=== PATIENT | male | born 1950 | race Caucasian/White ===

== ENCOUNTER → 2024-01-28 08:21 | Outpatient (REF) | payer OTHER, SELFPAY | LOC: RCS 08:21 | PROVIDERS: ATTENDING PHYSICIAN Internal Medicine Cardiovascular Disease; FAMILY PHYSICIAN Family Medicine | DX: I48.0 Paroxysmal atrial fibrillation (principal) | CPT/HCPCS: 93005 ==

== ENCOUNTER → 2024-06-29 13:36 | Outpatient (REF) | payer OTHER, SELFPAY | LOC: RCS 13:36 | PROVIDERS: ATTENDING PHYSICIAN Nurse Practitioner; FAMILY PHYSICIAN Family Medicine | DX: I48.0 Paroxysmal atrial fibrillation (principal); I50.20 Unspecified systolic (congestive) heart failure | CPT/HCPCS: 93306 ==

== ENCOUNTER 2025-06-18 19:01 | Emergency (ER) | payer OTHER, SELFPAY ==
[2025-06-18 19:07] VITALS: BP 167/91
[2025-06-18 19:25] LABS: Hematocrit 46.8 % (39.0-52.0); Hemoglobin 16.1 g/dL (13.0-18.0); Mean Corp Hgb Conc. 34.4 g/dL (33.0-37.0); Mean Corpuscular Volume 94.9 fL (80.0-94.0); Nucleated Red Blood Cells % 0 % (-); Platelet Count 171 10^3/uL (130-400); Red Cell Dist. Width 12.2 % (11.5-14.5)
[2025-06-18 19:51] LABS: ALT (SGPT) 18 U/L (0-50); AST (SGOT) 24 U/L (17-59); Albumin 4.6 g/dl (3.5-5.0); Alkaline Phosphatase 64 U/L (38-126); Blood Urea Nitrogen 21 mg/dl (9-20); Calcium 9.4 mg/dl (8.4-10.2); Carbon Dioxide 28 mmol/L (22-30); Chloride 101 mmol/L (98-107); Glucose 102 mg/dl (70-99); Potassium 4.5 mmol/L (3.5-5.1); Sodium 134 mmol/L (135-145); Total Protein 7.7 g/dl (6.3-8.2); eGFR > 60.00
[2025-06-18 19:55] LABS: Troponin I 0.013 ng/ml
[2025-06-18 22:40] VITALS: BP 140/77
[2025-06-18 22:42] VITALS: BMI 33.5
--- NOTE | 2025-06-19 00:14 | ED.GENMED ---
History of Present Illness
General
Chief Complaint: Chest Pain
Source: patient and family
Exam Limitations: none
Time Seen by Provider: 06/18/25 22:06
Nursing documentation reviewed up to this point in time: agreed with
History of Present Illness
History of Present Illness:
Note:
CHIEF COMPLAINT(S)
Pain on the right side, exacerbated during work.
HISTORY OF PRESENT ILLNESS
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 The patient describes the pain as similar to previous
gallstone attacks, though he has had a cholecystectomy. He reports that twisting or turning exacerbates the pain. The pain does not radiate to the chest, and he denies any shortness of breath, fever, eating difficulties, or diarrhea. He last had a
bowel movement this morning without any blood noted. The patient consumes alcohol�approximately three shots and three beers�three days a week. He also reports taking several medications for heart issues and diabetes, including metformin and heart
medications.
PAST MEDICAL AND SURIGICAL HISTORY
History of heart failure and previous gallbladder removal.
CHRONIC MEDICAL CONDITIONS SIGNIFICANTLY AFFECTING CARE
Cardiovascular disease, Diabetes (managed with metformin).
SOCIAL HISTORY
The patient denies smoking. He consumes alcohol approximately three days a week, which includes three shots and three beers each time.
MEDICATIONS
Metformin, heart medications (including Entresto and Eliquis), and other unspecified heart and diabetes medications.
REVIEW OF SYSTEMS
- Respiratory: Denies shortness of breath.
- Gastrointestinal: Reports right-sided pain similar to previous gallbladder attacks; denies issues with recent meals or stool discoloration.
- Cardiovascular: Denies chest pain.
- Urinary: Reports normal urination but awaits urinalysis.
PHYSICAL EXAM
General: Alert, no acute distress.
Skin: Warm, dry.
Head: Normocephalic, atraumatic.
Neck: Supple, trachea midline.
Eye Ears, nose, mouth, and throat: Oral mucosa moist.
Cardiovascular: Normal peripheral perfusion, no edema.
Respiratory: Respirations are non-labored.
Gastrointestinal : Abdomen, right side tenderness reported.
Back: Normal range of motion, normal alignment.
Musculoskeletal: Normal range of motion, normal strength.
Neurological: Alert and oriented to person, place, time, and situation, no focal neurological deficit observed.
Psychiatric: Cooperative, appropriate mood & affect.
PLAN
A urine sample will be analyzed to rule out urinary issues. Further evaluation for abdominal pain may be conducted based on urinalysis results and symptom persistence.
DIFFERENTIAL DIAGNOSIS
The differential diagnosis includes, in no particular order and is not limited to:
1. Cholecystitis
2. Peptic ulcer disease
3. Pancreatitis
4. Renal colic
5. Appendicitis
6. Hepatitis
7. Biliary tract obstruction
8. Gastritis
9. Abdominal aortic aneurysm
10. Musculoskeletal pain
EKG
My independent EKG interpretation is:
- Time of EKG: Not specified
- Rhythm: Normal sinus rhythm
- Heart rate: 71 beats per minute
- [place]: Left axis deviation
- Notable intervals: Not specified
- Abnormalities observed: No evidence of acute ischemia; Improvement noted as premature ventricular contractions (PVCs) are no longer present compared to earlier EKG today
Disposition:
SUMMARY OF ENCOUNTER
The patient, a 74-year-old male, was seen in the emergency department for right lower chest and abdominal pain, which he described as similar to previous gallbladder pain but has since resolved. The pain is reproducible in the right upper quadrant,
and the patient suspects a muscle pull due to recent weight lifting activities. An ultrasound revealed a mass in his left kidney, known to the patient for [address] imaging further characterized this as a heterogeneous, centrally necrotic
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
DISPOSITION
Discharge.
ASSESSMENT
The abdominal pain is likely musculoskeletal in origin due to the recent heavy lifting. The existing kidney mass, known to the patient, appears unchanged but should be followed up appropriately given its neoplastic nature.
PLAN
The patient will be discharged with reassurance about the right upper quadrant pain, suspected to be musculoskeletal. Discussions on following up on the known kidney mass with nephrology or urology will be advised.
INDEPENDENT REVIEW OF LABS AND INTERPRETATION OF TESTS
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
PATIENT EDUCATION AND COUNSELING
The patient was counseled on the nature of his right-sided abdominal pain and its likely musculoskeletal origin. He was also advised on the importance of following up with a specialist regarding the kidney mass to ensure appropriate ongoing
management.
FOLLOW-UP INSTRUCTIONS
The patient should follow up with a guide tour or urologist concerning the left kidney mass as previously advised.
MEDICAL DECISION MAKING
- Complexity of Data Reviewed: Chronic conditions affecting care include cardiovascular disease and diabetes. Differential diagnosis considered includes renal colic, musculoskeletal pain, among others from the provided list.
- Data:
- Category 1: My independent interpretation of the CT abdomen and pelvis was reviewed, confirming the presence of a neoplastic mass in the left kidney.
- Risk: Consideration of Admission/Observation: Escalation of care including admission/observation was considered but ultimately I feel the patient is safe for outpatient management with close follow-up. Reasoning: Work-up reassuring, does not
reveal any acute life/organ-threatening processes, patients symptoms well-controlled upon reevaluation, reexamination is reassuring, vitals are stable, patient agreeable with discharge, reliable for follow-up.
DIAGNOSIS
1. Abdominal pain, likely musculoskeletal (ICD-10: M79.1).
2. 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
Past History
Past History
ED Past Medical History: CHF, HTN, Hypercholesterolemia and NIDDM
ED Past Surgical History: Cardiac (cath 2021) and Cholecystectomy
Social History
Tobacco: Non-smoker
Alcohol: Occasional
Drug: None
Personal:
Living: with family
Employment: Employed
Phy Exam
Physical Exam
Physical Exam:
.
Scores
Heart Score for Chest Pain Patients
STEMI patient?: No
History: Slightly or Non-Suspicious
ECG: Normal
Age: >/= 65 years
Risk Factors: 1 or 2 Risk Factors
Troponin: </= Normal Limit
Heart Score for Chest Pain Patients: 3
Heart Score Risk: 2.5% MACE over next 6 weeks
Course
Orders/Labs/Results
Orders:
Orders
06/18/25 19:01
Electrocardiogram (*1) Urgent
Reason for Study: Chest Pain
EKG- Treatment ONCE
06/18/25 19:09
IV Insert/Care/Rem.- Treatment PRN
06/18/25 19:14
Complete Blood Count/With Diff Urgent
Comprehensive Metabolic Panel Urgent
Troponin I Urgent
06/18/25 22:53
Electrocardiogram (*1) Urgent
Reason for Study: Chest Pain
EKG- Treatment ONCE
Troponin I Urgent
US Abdomen Complete/Upper Urgent
Comment:
Reason For Exam: ruq abd pain, hx of mallorie, +etoh
06/19/25 00:15
CT Abd/pelvis W Iv Cont Urgent
Comment:
Reason For Exam: gen abd pain, possible mass in left kidney
06/19/25 00:43
Urinalysis Reflex To Culture Urgent
Date Specimen was Collected: 06/19/25
Time Specimen was Collected: 00:42
Abnormal Lab Results
06/18/25 06/19/25
19:14 00:43
MCV 94.9 H fL
(80.0-94.0)
MCH 32.7 H pg
(27.0-31.0)
Absolute Monos (auto) 0.7 H 10^3/uL
(0.1-0.6)
Sodium 134 L mmol/L
(135-145)
BUN 21 H mg/dl
(9-20)
Glucose 102 H mg/dl
(70-99)
Urine Ketones 3+ A
(Negative)
Urine Glucose 4+ A
(Negative)
06/18/25 19:14
06/18/25 19:14
Vital Signs
Initial and Last Documented VS:
Initial Vital Signs
Temp Pulse Resp BP Pulse Ox
98.7 F 81 15 167/91 99
06/18/25 19:07 06/18/25 19:07 06/18/25 19:07 06/18/25 19:07 06/18/25 19:07
Last Documented Vital Signs
Temp Pulse Resp BP Pulse Ox
98.7 F 84 20 148/72 97
06/18/25 19:07 06/19/25 00:36 06/19/25 00:36 06/19/25 00:36 06/19/25 00:36
*Radiology
Radiology exam reviewed: radiology read reviewed
*Pulse Oximetry
SaO2: 100
Oxygen Mode of Delivery: Room air
Patient hypoxic: no
*Critical Care Note
Total Time (30-74mins, 75-104mins- exclusive of procedures): Not Applicable
Update Note
Update Note:
NAME: AAMIR ROUSE
DATE OF EXAM: 06/18/2025
Patient No: [id number]
Physician: BRANDON^Moon
Date of : 1950
Past Medical History (entered by Technologist):
Reason For Exam (entered by Technologist):
Other Notes (entered by Technologist):
Additional Information (per [facility]iologist):
ruq pain, etoh abuse, cholecystectomy
Ultrasound abdomen
IMPRESSION:
Solid vascular 3.8 x 2.7 x 2.9 cm mass arising exophytically from the left kidney midpole concerning for neoplasm. Bilateral kidneys with cortical thinning. No hydronephrosis.
Cholecystectomy. No biliary ductal dilatation.
Limited visualization of the pancreas.
No gross abnormality of visualized spleen and liver.
Case finalized on 06/18/25 23:42 EDT
Pola Persaud MD
This report has been electronically signed and verified by the Radiologist whose name is printed above.
NAME: AAMIR ROUSE
DATE OF EXAM: 06/19/2025
Patient No: [id number]
Physician: BRANDON^Moon
Date of : 1950
Past Medical History (entered by Technologist):
Reason For Exam (entered by Technologist):
Other Notes (entered by Technologist): ct ordered to confirm the kidney mass seen on ultrasound.
no prior cts
Additional Information (per [facility] Radiologist):
CT abdomen pelvis with IV contrast
Comparison: Ultrasound abdomen June 18, 2025
IMPRESSION:
Heterogeneous centrally necrotic 2.9 x 3.0 x 4.2 cm exophytic neoplastic mass arising from the left kidney midpole. No evidence for extension into the collecting system. Few punctate nonobstructing left lower pole renal stone.
Nonspecific bilateral perinephric stranding.
No retroperitoneal adenopathy.
Diffuse bladder wall thickening although decompressed, correlate with urinalysis.
Cholecystectomy.
No acute bowel pathology
Scattered atheromatous disease.
Case finalized on 06/19/25 01:36 EST
Pola Persaud MD
This report has been electronically signed and verified by the Radiologist whose name is printed above.
ED Attending Note
-
Portions of this chart may have been created with voice recognition software.� Occasional wrong word or��sound alike� substitutions may have occurred due to the inherent limitations of voice recognition software.
Discharge Plan
Departure
Patient Disposition: Home (Routine Discharge)
Date of Disposition: 06/19/25
Time of Disposition: 01:52
Patient with high blood pressure during this ER visit?: Yes
Condition: Fair
Discharge Problem:
Chest pain, Left kidney mass
Instructions: Chest pain (DC), BLOOD PRESSURE
Prescriptions:
No Action
metformin 500 MG tablet extended release 24 hr
500 mg PO HS
Eliquis 5 MG tablet
5 mg PO BID Qty: 60 0RF
sacubitril-valsartan [Entresto] 1 TAB tablet
1 tab PO BID Qty: 60 0RF
Jardiance 10 MG tablet
10 mg PO DAILY Qty: 30 0RF
spironolactone 25 mg Tablet
25 mg PO DAILY
dofetilide [Tikosyn] 500 mcg capsule
500 mcg PO Q12H Qty: 60 3RF
metoprolol succinate [Toprol XL] 25 mg tablet extended release 24 hr
12.5 mg PO QPM 30 Days Qty: 30 3RF
Wegovy 2.4 mg/0.75 mL Pen Injector
See Rx Instructions .ROUTE .COMPLEX
Rx Instructions:
2.4 mg subcutaneously
Referrals:
Laureano Mobley DO [Family Provider, Family Practice]
Hernan Bustillo MD [Active, Nephrology] - As needed
Stand Alone Forms: Return to Work
Activity Restrictions/Additional Instructions:
Thank You for choosing [facility].
It was a pleasure meeting you and taking part in your care. We hope for your continued healing and wellness.
Please read discharge instructions in their entirety. However, they are for general education and may not describe your exact diagnosis at discharge. Information on your ER visit and medical conditions were discussed with you along with appropriate
follow up information...
If indicated, please take your medications as instructed and indicated on discharge paperwork.
Please schedule a follow up appointment as directed. Call to schedule an appointment
Please return to the emergency department with ANY change in, persisting, or worsening of symptoms. If any of your symptoms do not improve, or persist, or become more severe within 6-12 hours, please return to the emergency department for further
care.
Please return to the emergency department if you develop a headache, neck pain/stiffness, fever greater than 100.4F, chest pain, shortness of breath, persistent nausea, vomiting, slurred speech, difficulty walking, numbness/tingling, weakness, signs
of infection or any other symptoms that are worrisome to you.
If you have any questions or concerns please do not hesitate to call the Hospital at .
Interventions
Interventions:
*Risk Screen - Suicide Last Done: 06/18/25 19:07
*General Assessment Last Done: 06/18/25 19:07
*Neglect/Abuse Screening Last Done: 06/18/25 19:07
*ED COVID-19 Vaccine History Last Done: 06/18/25 19:07
*ED Influenza Vaccine History Last Done: 06/18/25 19:07
*Nursing Disposition Last Done: 06/19/25 02:25
ED- Cardiac Assessment Last Done: 06/18/25 22:44
Discharge Date and Time
Discharge Date/Time: 06/19/25 02:26
Print Language: CHILEAN
[2025-06-19 00:36] VITALS: BP 148/72
[2025-06-19 01:07] LABS: Urine Character Clear (Clear)
[2025-06-19 01:37] LABS: Troponin I < 0.012 ng/ml
== END 2025-06-19 02:26 | disposition home or self-care (01) ==
LOC: EMR 19:01
PROVIDERS: Emergency Medicine; EMERGENCY PHYSICIAN Student in an Organized Health Care Education/Training Program; FAMILY PHYSICIAN Family Medicine
DX: R07.9 Chest pain, unspecified (principal); N28.89 Other specified disorders of kidney and ureter; E11.9 Type 2 diabetes mellitus without complications; E78.00 Pure hypercholesterolemia, unspecified; I11.0 Hypertensive heart disease with heart failure; I50.9 Heart failure, unspecified; I25.10 Atherosclerotic heart disease of native coronary artery without angina pectoris; Z79.84 Long term (current) use of oral hypoglycemic drugs
CPT/HCPCS: 99284; 74177; 76700; 80053; 81003; 84484; 85025; 93005; Q9967